=== PATIENT | male | born 1965 | race Caucasian/White ===

== ENCOUNTER 2017-11-20 22:08 | Emergency (ER) | payer OTHER ==
[~2017-11-20] VITALS: Ht 165.1 cm; Wt 77.1 kg
[~2017-11-20 22:08] MED LIST: ASPIR 8181 MG PO; ATORVASTATIN CA20 M1 PO; ATORVASTATIN CA20 MG PO; LISINOPRIL10 M1 PO; MASON NATURAL1200 MG PO; PRINIVIL 5MG5 MG PO; SINGULAIR10 M1 PO; VERAMYST27.5 MCG/A NAS
[2017-11-20 22:12] VITALS: BP 139/81
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
== END 2017-11-20 22:25 ==
LOC: ERH 22:08
DX: Z48.02 Encounter for removal of sutures (principal)